=== PATIENT | female | born 1985 | race African-American/Black ===

== ENCOUNTER 2023-09-15 09:30 | Day surgery (SDC) | payer OTHER ==
[2023-09-09 09:30] VITALS: BP 141/100
[~2023-09-15] VITALS: Ht 160 cm; Wt 85.0 kg
[~2023-09-15 09:30] MED LIST: ZOLOFT100 MG PO
[2023-09-15 09:49] VITALS: BP 143/84
[2023-09-15 12:56] VITALS: BP 147/91
[2023-09-15] MEDS ORDERED: HYDROCODON-ACE1 EAC8 PO (13:14)
[2023-09-15 13:50] VITALS: BP 149/91
--- NOTE | 2023-09-16 07:30 | OR ---
[facility] [address] [place], [place] [address] Signed DATE OF OPERATION: 09/15/2023 SURGEON: Ciro Munroe MD PREOPERATIVE DIAGNOSIS: Recurrent subcutaneous abscess, medial left inframammary crease (2.5 cm). POSTOPERATIVE DIAGNOSIS: Recurrent subcutaneous abscess, medial left inframammary crease (2.5 cm). PROCEDURE: Re-excision of recurrent subcutaneous abscess, medial left inframammary crease. ESTIMATED BLOOD LOSS: None. INDICATIONS: Kayy is a 38-year-old female, who actually came to me back in 2019 after incision and drainage of infected subcutaneous abscess on the medial side of her left inframammary crease. The wound culture came back negative. She did well with cephalexin. We had excised that in the office under local anesthetic. The pathology report came back with chronic inflammation and dermal scarring. There were no epithelial elements. About a week prior to her office visit on this occasion, she said it recurred. It was the size of a golf ball. She said it was extremely painful. Her son happened to bump his head against the area and it broke open and released all the fluid in pressure. She had been to her primary care provider. She was just finishing a course of doxycycline when she made it to my office. In the meantime, she says she has been doing much better. We talked about re-excising under local anesthetic versus the OR. She felt much more comfortable doing this in the OR. She wanted to be anesthetized in sleep. She understands the nature of the surgery. There is risk including, but not limited to bleeding, infection, scarring, change in contour of the skin as well as recurrent abscesses in the same or other locations. She had expressed understanding and wished to proceed. She also told me on this occasion that she used to wear a wire bra and she wonders if the wire has contributed to this area. She had expressed understanding and wished to proceed. DESCRIPTION OF PROCEDURE: I met with Kayy in our preop area. With our nurse present, Kayy was able to easily show us the area and we marked that appropriately. There are no local signs or symptoms of infection today. Once again on palpation, I can feel the dermal thickening, but I do Electronically Signed By: CIRO MUNROE MD 09/16/23 0730 PATIENT NAME: KAYY CARPENTER OPERATIVE REPORT DATE OF : 81 REPORT #: [id number] PHYSICIAN: CIRO MUNROE MD PCP: CATHERINE JUAN PA-C REPORT IS CONFIDENTIAL AND NOT TO BE RELEASED WITHOUT AUTHORIZATION [facility] [address] [place] [id number] Signed not feel anything underneath the skin. She was then taken in the operating room and placed in the supine position under general LMA anesthesia. She was prepped and draped in the usual sterile fashion. She was given preoperative antibiotics along with subcutaneous heparin. SCDs were utilized. We measured out the previous scar and it was 2.5 cm in length. We used an elliptical incision somewhat obliquely that follows the curve of the inframammary crease. We went around this area with a 15 blade knife about 5 mm wide and about 3 cm in length. We took the skin and went down and around this area and we used the cautery and went very carefully and slowly with excellent lighting and our nurse helping retract. Underneath was very healthy-appearing fat with no granulation tissue, with no epithelial elements, no evidence of a cyst wall. We went down almost to the chest wall itself. We took the skin and subcutaneous fat out in one piece. It was passed off to the pathology department. We then injected local anesthetic into the wound. The wound was irrigated and suctioned out until clear. We brought the skin and dermis back together with multiple interrupted 3-0 subcuticular and Monocryl sutures. Dry gauze and tape was then applied. Kayy was then weaned from her anesthesia, extubated in the OR, and taken to recovery room in stable condition. Ciro Munroe MD ALB/MODL /[id number] cc: AMADOR Sams MD Copies: CIRO MUNROE MD ~ Electronically Signed By: CIRO MUNROE MD 09/16/23 0730 PATIENT NAME: KAYY CARPENTER OPERATIVE REPORT DATE OF : 81 REPORT #: [id number] PHYSICIAN: CIRO MUNROE MD PCP: CATHERINE JUAN PA-C REPORT IS CONFIDENTIAL AND NOT TO BE RELEASED WITHOUT AUTHORIZATION
--- NOTE | 2023-09-17 11:02 | PATH ---
[facility] [address] [place], [place] [address] Signed SPECIMEN(S): A BREAST BIOPSY, WITHOUT SURGICAL MARGINS - LEFT SPECIMEN SOURCE: A. BREAST BIOPSY, WITHOUT SURGICAL MARGINS - LEFT CLINICAL HISTORY: Re-excision left chest wall sub-Q mass. Subcutaneous abscess L. breast. FINAL PATHOLOGIC DIAGNOSIS: Breast, left chest wall, excision: - Benign skin and subcutaneous tissue with chronic inflammation, granulation tissue, and scar formation, consistent with clinical impression of abscess BRP MICROSCOPIC EXAMINATION: Histologic sections of all submitted blocks are examined by light microscopy. These findings, together with the gross examination, support the pathologic diagnosis. GROSS DESCRIPTION: The specimen, labeled and designated "Merly Carpenter" and designated on the requisition "reexcision left chest wall subcutaneous abscess," is received in formalin and consists of an unoriented portion of yellow-mcmillan lobulated fatty tissue (8 g, 3.7 x 3.4 x 2.0 cm) with attached ellipse of brown-mcmillan wrinkled skin (0.9 cm in length by 0.7 cm in width). The resection margin is inked blue and the specimen is serially sectioned to reveal a yellow-mcmillan lobulated fatty cut surface with no masses or lesions gross identified. The specimen is submitted entirely in cassette A1-A7. Cold ischemic time: Cannot be calculated due to insufficient information The tissue was fixed in formalin for at least 24 and less than 48 hours AC (under the direct supervision of a pathologist) The Gross Description was prepared using a voice recognition system. The report was reviewed for accuracy; however, sound-alike word errors, addition and/or deletions may occur. If there is any question about this report, please contact Client Services. ADDITIONAL NOTES: Immunohistochemical and/or in situ hybridization studies if performed in this case included appropriate positive controls that reacted as expected. This PATIENT NAME: SHAHEEN CARPENTER PATHOLOGY DATE OF : 81 REPORT #: [id number] PHYSICIAN: NAKIA CAMARGO PCP: CATHERINE JUAN PA-C REPORT IS CONFIDENTIAL AND NOT TO BE RELEASED WITHOUT AUTHORIZATION [facility] [address] [facility] [place] [address] Signed test was developed and its performance characteristics determined by [facility]. It has not been cleared or approved by the U.S. Food and Drug Administration. The FDA has determined that such clearance or approval is not necessary. This test is used for clinical purposes. It should not be regarded as investigational or for research. [facility] is certified under the Clinical Laboratory Improvement Amendments of 1988 (CLIA) as qualified to perform high complexity clinical laboratory testing. PERFORMING LABORATORY: Technical component was performed by [facility], [address] [place] [id number] (CLIA# [id number]). [facility], [address] [address] [address] (CLIA# [id number]). Diagnostician: Bean Renteria MD Pathologist Electronically Signed 09/17/2023 Copies: ~ PATIENT NAME: SHAHEEN CARPENTER PATHOLOGY DATE OF : 81 REPORT #: [id number] PHYSICIAN: NAKIA CAMARGO PCP: CATHERINE JUAN PA-C REPORT IS CONFIDENTIAL AND NOT TO BE RELEASED WITHOUT AUTHORIZATION
== END 2023-09-15 14:20 | disposition home or self-care (01) ==
LOC: DS 09:30
PROVIDERS: ATTEND Colon & Rectal Surgery
PROC: 0JB60ZZ Excision of Chest Subcutaneous Tissue and Fascia, Open Approach (ICD-10-PCS; principal; 2023-09-15 11:30)
DX: L02.213 Cutaneous abscess of chest wall (principal); K21.9 Gastro-esophageal reflux disease without esophagitis; E78.5 Hyperlipidemia, unspecified
CPT/HCPCS: 00400; J0131; J0690; J1100; J1644; J1885; J2001; J2405; J2704; J3010; J7121